=== PATIENT | male | born 1990 | race Caucasian/White ===

== ENCOUNTER 2017-04-15 09:54 | Day surgery (SDC) | payer OTHER ==
[2017-04-15] VITALS (8 sets, daily range): BP systolic 92–131; BP diastolic 48–73; PULSE 62–74; RESP 10–18; Ht 175.3 cm; Wt 88.6 kg
[~2017-04-15] VITALS: Ht 175.3 cm; Wt 88.6 kg
[~2017-04-15 09:54] MED LIST: CEFAZOLIN 2 GM/50 ML (PMX) 50 ML IVPB SCH; ROCURONIUM 50 MG INJ ONE; SOD CHLORIDE 0.9% 1,000 ML IV SCH
[2017-04-15] MEDS ORDERED: BUPIVACAINE 0.25% (MPF) 30 ML INJ ONE (12:55)
[2017-04-15] MEDS ORDERED: MIDAZOLAM 1 MG/ML 2 ML INJ ONE (13:16)
[2017-04-15] MEDS ORDERED: PROPOFOL 20 ML ONE ×2 (13:16→14:02)
[2017-04-15] MEDS ORDERED: LIDOCAINE 2% (SDV) 5 ML INJ ONE (13:16)
[2017-04-15] MEDS ORDERED: SUCCINYLCHOLINE CHLORIDE 100 MG/5 ML SYG IV ONE (13:16)
[2017-04-15] MEDS ORDERED: FENTAnyl 50 MCG/ML VIAL ONE (13:17)
[2017-04-15] MEDS ORDERED: CEFAZOLIN 1 GM INJ ONE (13:44)
[2017-04-15] MEDS ORDERED: DEXAMETHASONE 4 MG/ML 1 ML INJ ONE (13:45)
[2017-04-15] MEDS ORDERED: ONDANSETRON 4 MG INJ ONE (13:45)
[2017-04-15] MEDS ORDERED: BUPIVACAINE 0.25% (MPF) 30 ML INJ INJ ONE (13:47)
[2017-04-15] MEDS ORDERED: GLYCOPYRROLATE 0.4 MG INJ ONE (13:50)
[2017-04-15] MEDS ORDERED: NEOSTIGMINE 3 MG/3 ML SYRINGE ONE (13:50)
[2017-04-15] MEDS ORDERED: KETOROLAC 30 MG INJ ONE (14:03)
--- NOTE | 2017-04-15 14:14 | OPR ---
Date/Time of Note Date/Time of Note DATE: 04/15/17 TIME: 14:10 Operative Report Procedure Date: Apr 15, 2017 Preoperative Diagnosis pilonidal cyst Postoperative Diagnosis same Operation Performed 1. pilonidal cystectomy 13 cm incision and 13 x 4 cm mass 2. localized adjacent tissue transfer with the use of skin flaps 52 sq cm defect 3. implantation of biologic matrix cpt code 61765 4. therapeutic injection of subcutaneous marcaine cpt code 32074 Surgeon: Job BRODERICK Anesthesia Type: general Estimated Blood Loss: 10 - 50 ml's Specimens pilonidal cyst Grafts/Implants biologic matrix Complications: no Indications 26-year-old male with a large pilonidal cyst. He requires surgical excision. Risks alternatives benefits and percent were discussed the patient. Patient expresses understanding consents to the operation. Procedure Description Taken to the OR and prepped and draped in usual sterile fashion. Surgical timeout was performed. IV antibiotics given. Elliptical incision is made with a 10 blade around the pilonidal cyst. Dissection cautery was carried all the way to the bone. The pilonidal cyst is excised with cautery. Hemostasis established. Irrigation was used. Biologic matrix was placed in the base of the wound. Due to large tissue defect localized adjacent tissue transfer with these of skin flaps were performed. Multilayer closure with multiple layers of 2-0 Vicryl and the skin is closed with interrupted 2-0 nylon. Therapeutic subcutaneous Marcaine is injected throughout the incision site dry dressings were applied. Job BRODERICK Apr 15, 2017 14:14
[2017-04-15] MEDS ORDERED: FENTAnyl 50 MCG/ML VIAL IV PRN ×3 (14:30)
[2017-04-15] MEDS ORDERED: HYDROmorphONE (0.2 MG/ML) 10ML SYG IV PRN ×3 (14:30)
[2017-04-15] MEDS ORDERED: OXYCODONE/ACETAMINOPHEN (5/325) TAB PO PRN ×2 (14:30)
[2017-04-15] MEDS ORDERED: HYDROCODONE/APAP (5/325) TAB PO ONE (14:30)
[2017-04-15] MEDS ORDERED: PROCHLORPERAZINE 10 MG INJ IV PRN (14:30)
[2017-04-15] MEDS ORDERED: MEPERIDINE 25 MG INJ IV PRN (14:30)
[2017-04-15] MEDS ORDERED: DIPHENHYDRAMINE 50 MG INJ IV PRN (14:30)
[2017-04-15] MEDS ORDERED: ONDANSETRON 4 MG INJ IV PRN (14:30)
== END 2017-04-15 15:29 | disposition home or self-care (01) ==
LOC: SDS 09:54
PROVIDERS: ATTEND Surgery
DX: L05.92 Pilonidal sinus without abscess (principal); Z87.891 Personal history of nicotine dependence
CPT/HCPCS: 11772; 88304; J0690; J1100; J1170; J1885; J2175; J2250; J2405; J2710; J3010; Z7512; Z7610; J7999